=== PATIENT | male | born 1980 | race Caucasian/White ===

== ENCOUNTER 2023-03-13 18:52 | Emergency (ER) | payer SELFPAY ==
[2023-03-13 19:15] VITALS: BP 132/77; PULSE 102; RESP 20; TEMP 36.6; O2SAT 99
[2023-03-13] MEDS: TETANUS,DIPHTHERIA,AC PERTUSSIS ADULT (0.5 ML) BOOSTRIX IM (19:25)
--- NOTE | 2023-03-13 19:27 | ED.WOUNDLAC ---
HPI - Wound/Laceration General Chief Complaint: Wound/Laceration Stated Complaint: Cut Lt Leg Time Seen by Provider: 03/13/23 19:10 Source: patient and family Mode of arrival: ambulatory Limitations: no limitations History of Present Illness HPI narrative: 42-year-old male presents with with complaint of laceration to his left lower extremity. Patient reports that he has been drinking alcohol all day , was showing off and went down a slide headfirst leg slid off a slide and hit concrete on side of pool Causing laceration. States that he is very anxious around needles so a friend gave him 5 mg of Ativan prior to arrival. Patient is alert and talkative. Arrived with butterfly Band-Aids to laceration. Tetanus not up-to-date. Ambulatory with steady gait. bleeding controlled. All systems reviewed and negative except as noted above. Related Data Allergies Allergy/AdvReac Type Severity Reaction Status Date / Time No Known Allergies Allergy Verified 03/13/23 19:14 Review of Systems Review of Systems: CONSTITUTIONAL: Denies fever, chills, or sweats. EYES: Denies visual changes, redness, or discharge. ENT: Denies rhinorrhea, congestion, sore throat, or otalgia. CARDIOVASCULAR: Denies chest pain, palpitations, or edema. RESPIRATORY: Denies cough or dyspnea. GASTROINTESTINAL: Denies abdominal pain, nausea, vomiting, or diarrhea. GENITOURINARY: Denies dysuria or hematuria. SKIN: Denies rash or itching. Reports laceration to left lower extremity. MUSCULOSKELETAL: Denies back pain, joint pain, or myalgia. NEUROLOGIC: Denies headache, numbness, or weakness. PSYCHIATRIC: Denies anxiety or depression. All other systems reviewed are negative, except as documented in HPI. PMFSH Comments At time of signature, agree with nursing past medical, surgical, social and family history. There is no relevant family history pertinent to the presenting complaint. Exam Narrative: GENERAL: This is a well-nourished, well-developed patient, in no apparent distress. HEAD: normocephalic, atraumatic. EYES: PERRL. Sclera clear/white. Vision is grossly intact. EARS: External ears normal NOSE: External nose normal NECK: Neck supple, non-tender without lymphadenopathy, masses or thyromegaly. CARDIOVASCULAR: Regular rate and rhythm without murmurs, gallops, or rubs. RESPIRATORY: Clear to auscultation. Breath sounds equal bilaterally. No wheezes, rales, or rhonchi. SKIN: warm, Dry, intact with no suspicious lesions or rash, good texture and turgor. NEURO: awake, alert, and oriented to person, place and time. There were no obvious focal neurologic abnormalities. EXTREMITIES: No joint tenderness, effusion, or edema noted. Approximate 2 cm irregular laceration to left zurita. Extrem: Upper/lower leg/hip images: 1. 2 cm laceration to left zurita. Course Course Level of Care: [facility] Visit Vital Signs Vital signs: Reviewed Procedures Laceration Laceration 1: Date: 03/13/23 Time: 19:20 Site: lower extremity Side (If applicable): left Size (cm): 2 Description: irregular Depth: simple, single layer Local Anesthetic: none Pre-repair: wound explored, irrigated and irrigated extensively ====== Skin Level ====== Skin layer closed with: megan Number of sutures: 10 ====== Subcutaneous Layer ====== ====== Muscle Layer ====== ====== Tendon Layer ====== MDM - Wound/Laceration MDM Narrative Medical decision making narrative: due to location of laceration and tension that may be applied, laceration was closed using megan. Patient And agreed to plan of care. prescribing an antibiotic today to prevent wound infection due to mechanism if injury. Tetanus was updated. Patient admits to alcohol use and also took Ativan prior to arrival. He has been awake and alert during his visit to [facility]. Patient is aware of diag
== END 2023-03-13 19:35 | disposition home or self-care (01) ==
PROVIDERS: Emergency Provider Nurse Practitioner Family; PCP Internal Medicine
DX: S81.812A Laceration without foreign body, left lower leg, initial encounter (principal); W22.09XA Striking against other stationary object, initial encounter; Y93.11 Activity, swimming; Y92.9 Unspecified place or not applicable; Z23 Encounter for immunization
CPT/HCPCS: 12002; 90471; 90715; 99213; G0463